=== PATIENT | female | born 1955 | race Caucasian/White ===

== ENCOUNTER → 2017-01-27 | Outpatient (CLI) | payer BC ==
--- NOTE | 2017-01-28 09:13 | DI ---
MRI LUMBAR SPINE SCAN WITHOUT IV CONTRAST, 01/27/2017 11:17 AM: Clinical History: Low back pain. Previous Exam: None. Technique: Sagittal and axial T2 weighted; sagittal T1 weighted and T2 STIR; and axial PD. The vertebral bodies are of normal height and size. There is mild to moderate disc space narrowing fr om L1-2 through L4-5 with a normal disc height at L5-S1. All lumbar vertebral bodies show desiccation change. The cord terminates at L1-2, and the conus medullaris is normal. There is no evidence of a " tethered" cord. The T10-11 through T12-L1 disc spaces are normal. L1-2 has a circumferentially bulgin g but not herniated disc without canal or neural foraminal stenosis. L2-3 through L4-5 disc spaces al so have bulging but not herniated discs that are less prominent than at L2-3. These levels show no ca nal or neural foraminal stenosis. The L5-S1 disc space is normal. Readin. There are bulging but not herniated discs without canal or neural foraminal stenosis from L1-2 th rough L4-5. 2. The disc spaces from T10-11 through T12-L1 and at L5-S1 are normal.
== END ==
LOC: MRI 11:10
PROVIDERS: ATTEND Family Medicine
DX: M54.5 Low back pain (principal); M47.816 Spondylosis without myelopathy or radiculopathy, lumbar region
CPT/HCPCS: 72148